=== PATIENT | female | born 1970 | race Caucasian/White ===

== ENCOUNTER 2021-05-07 15:20 | Emergency (ER) | payer SELFPAY ==
[~2021-05-07] VITALS: Ht 167.6 cm; Wt 58.4 kg
[2021-05-07] MEDS ORDERED: IPRATRPIUM/ALBUTEROL 0.5/2.5MG 3 ML NEBU. NEB ONE (16:15)
[2021-05-07] MEDS ORDERED: DEXAMETHASONE SOD PHOS 4 MG/ML VIAL PO ONE (16:15)
--- NOTE | 2021-05-07 16:43 | PHYS DOC ---
Past Medical History Past Medical History: Arthritis Additional Past Medical Histor: back problems Past Surgical History: Other Additional Past Surgical Histo: TUBAL Smoking Status: Current Every Day Smoker Additional Information: 0.25 PPD Alcohol Use: None Drug Use: Marijuana General Adult EDM: Chief Complaint: SHORTNESS OF BREATH HPI: HPI: Patient is a 51 year old female who presents with cough and shortness of breath x2 days. Cough is productive with yellow sputum. Denies fever. Patient was tested 2 weeks ago for Covid and was negative. Patient's been partially vaccinated for Covid.Patient reports history of smoking cigarettes and marijuana. Denies other medical history. Review of Systems: Review of Systems: ROS At least 10 ROS systems have been reviewed and are negative except as documented in the HPI. General: Negative except as outlined in HPI above. Skin: Negative except as outlined in HPI above. HEENT: Negative except as outlined in HPI above. Neck: Negative except as outlined in HPI above. Respiratory: Negative except as outlined in HPI above.. Cardiovascular: Negative except as outlined in HPI above. Abdomen: Negative except as outlined in HPI above. : Negative except as outlined in HPI above. Back/MSK: Negative except as outlined in HPI above. Neuro: Negative except as outlined in HPI above. Psych: Negative except as outlined in HPI above. Heart Score: C/O Chest Pain: No Risk Factors: Risk Factors: DM, Current or recent (<one month) smoker, HTN, HLP, family history of CAD, obesity. Risk Scores: Score 0 - 3: 2.5% MACE over next 6 weeks - Discharge Home Score 4 - 6: 20.3% MACE over next 6 weeks - Admit for Clinical Observation Score 7 - 10: 72.7% MACE over next 6 weeks - Early Invasive Strategies Current Medications: Current Medications Medications (Trade) Dose Ordered Sig/Aníbal Start Time Stop Time Status Last Admin Dose Admin Albuterol/ Ipratropium (Duoneb) 3 ml 1X ONCE 05/07/21 16:15 05/07/21 16:16 DC Dexamethasone Sodium Phosphate (Decadron) 10 mg 1X ONCE 05/07/21 16:15 05/07/21 16:16 DC 05/07/21 16:21 10 MG Allergies: Allergies: Allergies Coded Allergies Type Severity Reaction Last Updated Verified No Known Drug Allergies 02/18/14 No Physical Exam: PE: Constitutional: Well developed, well nourished, no acute distress, non-toxic appearance. [] HENT: Normocephalic, atraumatic, bilateral external ears normal, oropharynx moist, no oral exudates, nose normal. [] Eyes: PERRLA, EOMI, conjunctiva normal, no discharge. [] Neck: Normal range of motion, no tenderness, supple, no stridor. [] Cardiovascular:Heart rate regular rhythm, no murmur [] Lungs & Thorax: Wheezing heard bilaterally Abdomen: Bowel sounds normal, soft, no tenderness, no masses, no pulsatile masses. [] Skin: Warm, dry, no erythema, no rash. [] Back: No tenderness, no CVA tenderness. [] Extremities: No tenderness, no cyanosis, no clubbing, ROM intact, no edema. [] Neurologic: Alert and oriented X 3, normal motor function, normal sensory function, no focal deficits noted. [] Psychologic: Affect normal, judgement normal, mood normal. [] Current Patient Data: Labs: Laboratory Tests Test 05/07/21 15:39 POC Urine HCG, Qualitative Hcg negative (Negative) Vital Signs: Vital Signs Date Time Temp Pulse Resp B/P (MAP) Pulse Ox O2 Delivery O2 Flow Rate FiO2 05/07/21 15:29 97.3 91 20 136/83 (100) 99 Room Air 97.3 EKG: EKG: [] Radiology/Procedures: Radiology/Procedures: []FINDINGS: Lines, Tubes, and Devices: None. Cardiomediastinal Silhouette: Within normal limits. Lungs and Pleura: Mild bibasilar patchy opacities, possibly subsegmental atelectasis. Nonspecific mild interstitial prominence. No definite pleural effusion or pneumothorax. Bones and Soft Tissues: No acute osseous abnormality. IMPRESSION: Mild bibasilar patchy airspace disease, possibly subsegmental atelectasis. Electronically signed by: Hussein Haines DO (05/07/2021 4:46 PM) [facility] Course & Med Decision Making: Course & Med Decision Making Pertinent Labs and Imaging studies reviewed. (See chart for details) [] 51-year-old female presents with productive cough and shortness of breath. Patient tested for Covid. Patient given dexamethasone. Chest x-ray ordered to rule out pneumonia. DuoNeb treatment given to help with shortness of breath. Patient is hemodynamically stable. Negative PERC and Wells. Chest x-ray is unremarkable. Dragon Disclaimer: Dragon Disclaimer: This electronic medical record was generated, in whole or in part, using a voice recognition dictation system. Departure Departure Impression: Primary Impression: Cough Disposition: 01 HOME / SELF CARE / HOMELESS Condition: STABLE Referrals: NON,STAFF (PCP) Patient Instructions: Cough, Adult, Rirt-si-Hhkn Additional Instructions: You were seen in the emergency room for active cough with shortness of breath. You are giving a breathing treatment in the emergency room which improved your symptoms. Please make sure you are taking Mucinex at home to help with symptoms along with ibuprofen and Tylenol for headache. Please follow-up with your PCP in the next few days. Return to emergency room if you have worsening symptoms or concerns. EMERGENCY DEPARTMENT GENERAL DISCHARGE INSTRUCTIONS Thank you for coming to [facility] Emergency Department (ED) today and trusting us with you care. We trust that you had a positive experience in our Emergency Department. If you wish to speak to the department management, you may call the Director at [phone]. YOUR FOLLOW UP INSTRUCTIONS ARE FOLLOWS: 1. Do you have a private Doctor? If you do not have a private doctor, please ask for a resource list of physicians or clinics that may be able to assist you with follow up care. 2. The Emergency Physicain has interpreted your x-rays. The X-Ray specialist will also review them. If there is a change in the findings, you will be notified in 48 hours when at all possible. 3. A lab test or culture has been done, your results will be reviewed and you will be notified if you need a change in treatment. ADDITIONAL INSTRUCTIONS AND INFORMATION: 1. Your care today has been supervised by a physician who is specially trained in emergency care. Many problems require more than one evaluation for a complete diagnosis and treatment. We recommend that you schedule your follow up appointment as recommended to ensure complete treatment of you illness or injury. If you are unable to obtain follow up care and continue to have a problem, or if your condition worsens, we recommend that you return to the ED. 2. We are not able to safely determine your condition over the phone nor are we able to give sound medical advice over the phone. For these safety reasons, if you call for medical advice we will ask you to come to the ED for further evaluation. 3. If you have any questions regarding these discharge instructions please call the ED at [phone]. SAFETY INFORMATION: In the interest of safety, wellness, and injury prevention; we encourage you to wear your sealbelt, if you smoke; quite smoking, and we encourage family to use a prote ctive helmet for bicycling and other sporting events that present an increased risk for head injury. IF YOUR SYMPTOMS WORSEN OR NEW SYMPTOMS DEVELOP, OR YOU HAVE CONCERNS ABOUT YOUR CONDITION; OR IF YOUR CONDITION WORSENS WHILE YOU ARE WAITING FOR YOUR FOLLOW UP APPOINTMENT; EITHER CONTACT YOUR PRIMARY CARE DOCTOR, THE PHYSICIAN WHOSE NAME AND NUMBER YOU WERE GIVEN, OR RETURN TO THE ED IMMEDIATELY. Scripts Albuterol Sulfate (Proair Hfa) 8.5 Gm Hfa.aer.ad 2 PUFF IH PRN Q4-6HRS PRN for wheezing for 21 Days, #1 INHALER 0 Refills Prov: NELLY SIERRA APRN 05/07/21 NELLY SIERRA APRN May 07, 2021 16:43
--- NOTE | 2021-05-07 16:49 | RAD ---
EXAMINATION: XR CHEST 1V CLINICAL HISTORY: Cough, shortness breath EXAM DATE/TIME: 05/07/2021 4:24 PM COMPARISON: None FINDINGS: Lines, Tubes, and Devices: None. Cardiomediastinal Silhouette: Within normal limits. Lungs and Pleura: Mild bibasilar patchy opacities, possibly subsegmental atelectasis. Nonspecific mil d interstitial prominence. No definite pleural effusion or pneumothorax. Bones and Soft Tissues: No acute osseous abnormality. IMPRESSION: Mild bibasilar patchy airspace disease, possibly subsegmental atelectasis. Electronically signed by: Hussein Haines DO (05/07/2021 4:46 PM) [facility]
[2021-05-07 17:08] VITALS: BP 149/72
[2021-05-07] MEDS ORDERED: ALBU2.5V8 IH (17:40)
--- NOTE | 2021-05-08 16:50 | NUR ---
IP: Attempted to contact pt concerning covid test. No answer, left a voicemail to return the call.
--- NOTE | 2021-05-08 23:51 | EKG ---
[facility] [address] [place] [address] Test Date: 2021-05-07 Test Time: 15:50:51 Pat Name: MARTIN SAN Department: Room: Gender: F Acid Mixer: : 1970 Requested By: NELLY SIERRA Order Number: [id number] Reading MD: Xavier Wu Measurements Intervals [place] Rate: 76 P: 90 WI: 134 QRS: 82 QRSD: 72 T: 28 QT: 388 QTc: 441 Interpretive Statements SINUS RHYTHM ST & T ABNORMALITY, CONSIDER INFERIOR ISCHEMIA OR LEFT VENTRICULAR STRAIN ABNORMAL ECG RI6.02 No previous ECG available for comparison Electronically Signed On 05-10-2021 12:57:49 SPOUT POSITIONER by Xavier Wu
--- NOTE | 2021-05-09 00:11 | EKG ---
[facility] [address] [place] [address] Test Date: 2021-05-07 Test Time: 15:47:59 Pat Name: MARTIN SAN Department: Room: Gender: F Early Years Teacher: : 1970 Requested By: NELLY SIERRA Order Number: [id number] Reading MD: Xavier Wu Measurements Intervals [place] Rate: 74 P: 90 MD: 138 QRS: 91 QRSD: 78 T: 138 QT: 386 QTc: 429 Interpretive Statements SINUS RHYTHM QRS(T) CONTOUR ABNORMALITY CONSISTENT WITH ANTEROSEPTAL INFARCT PROBABLY OLD Electronically Signed On 05-10-2021 12:58:07 PHOTO PRINT SPECIALIST by Xavier Wu
--- NOTE | 2021-05-11 17:50 | NUR ---
IP: Attempted a second time to contact pt concerning covid test. No answer, left a voicemail to return the call.
--- NOTE | 2021-05-16 16:02 | EKG ---
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
== END 2021-05-07 18:02 | disposition home or self-care (01) ==
LOC: ER 15:20
DX: R05.9 Cough, unspecified (principal); Z20.822 Contact with and (suspected) exposure to COVID-19; R06.02 Shortness of breath; F17.200 Nicotine dependence, unspecified, uncomplicated
CPT/HCPCS: 71045; 81025; 93005; 94640; 99285; J1100; U0003; U0005